=== PATIENT | female | born 1995 | race Caucasian/White ===

== ENCOUNTER 2024-06-17 16:31 | Emergency (ER) | payer OTHER, SELFPAY ==
[2024-06-17 16:32] VITALS: BP 143/93
[2024-06-17 16:36] VITALS: BMI 41.7
--- NOTE | 2024-06-17 18:19 | ED.GENMED ---
History of Present Illness
General
Chief Complaint: Rabies
Source: patient
Exam Limitations: none
Time Seen by Provider: 06/17/24 17:56
Nursing documentation reviewed up to this point in time: agreed with
History of Present Illness
History of Present Illness:
Patient states she woke over night and there was a bat in her room. Bat was not found. Advised to come to ED to begin rabies series. No bite located.
Past History
Past History
ED Past Medical History: None
Review of Systems
Review of Systems
Allergies reviewed?: Yes
All Other Systems: ROS reviewed and negative except as documented in HPI and ROS
Constitutional: Reports no symptoms
EENT: Reports no symptoms
Respiratory: Reports no symptoms
Cardiac: Reports no symptoms
ABD/GI: Reports no symptoms
Musculoskeletal: Reports no symptoms
Skin: Reports no symptoms
Neurological: Reports no symptoms
Psychiatric: Reports no symptoms
Phy Exam
General Physical Exam
General Presentation: well appearing and no apparent distress
General age: appears stated age
General Habitus: normal
General Mental: alert
Musculoskeletal Exam
Musculoskeletal Exam: full ROM
Skin Exam
Skin Exam: normal color, warm/dry and no rash
Psychiatric Exam
Psychiatric Exam: normal mood/affect
Course
Orders/Labs/Results
Orders:
Orders
06/17/24 18:19
Rabies Immune Globulin/Pf [HyperRAB] 2,580 unit IM NOW STA
Rabies Vaccine (Pcec)/Pf [Rabavert Rabies Vacc W-Diluent] 2.5 unit IM .ONCE ONE
Vital Signs
Initial and Last Documented VS:
Initial Vital Signs
Temp Pulse Resp BP Pulse Ox
98.1 F 101 18 143/93 96
06/17/24 16:32 06/17/24 16:32 06/17/24 16:32 06/17/24 16:32 06/17/24 16:32
Last Documented Vital Signs
Temp Pulse Resp BP Pulse Ox
98.1 F 101 18 143/93 96
06/17/24 16:32 06/17/24 16:32 06/17/24 16:32 06/17/24 16:32 06/17/24 16:32
*Critical Care Note
Total Time (30-74mins, 75-104mins- exclusive of procedures): Not Applicable
ED Attending Note
-
Portions of this chart may have been created with voice recognition software.� Occasional wrong word or��sound alike� substitutions may have occurred due to the inherent limitations of voice recognition software.
Discharge Plan
Departure
Patient Disposition: Home (Routine Discharge)
Date of Disposition: 06/17/24
Time of Disposition: 18:20
Patient with high blood pressure during this ER visit?: No
Condition: Good
Covid-19: Not Applicable
Discharge Problem:
Rabies exposure
Instructions: Rabies Vaccine, Rabies Vaccine CDC Vaccine Information Statement (VIS)
Prescriptions:
New
Imovax Rabies Vaccine (PF) 2.5 unit recon soln
1 ml IM DIRECTED Qty: 3 0RF
Stand Alone Forms: Rabies Vaccine Post Exp Dosing
Activity Restrictions/Additional Instructions:
Follow up with the infusion center on Wed. of your next rabies vaccine
Interventions
Interventions:
*General Assessment Last Done: 06/17/24 18:18
*Neglect/Abuse Screening Last Done: 06/17/24 18:18
*ED COVID-19 Vaccine History Last Done: 06/17/24 18:18
Discharge Date and Time
Print Language: WALLISIAN
[2024-06-17] MEDS: RABAVERT RABIES VACC W-DILUENT 2.5 UNIT IM (18:47)
[2024-06-17] MEDS: HyperRAB 1200 UNIT IM (18:51)
== END 2024-06-17 19:11 | disposition home or self-care (01) ==
LOC: EMR 16:31
PROVIDERS: EMERGENCY PHYSICIAN Emergency Medicine
DX: Z20.3 Contact with and (suspected) exposure to rabies (principal); Z29.14 Encounter for prophylactic rabies immune globulin; Z23 Encounter for immunization
CPT/HCPCS: 99284; 96372; 90471; 90375; 90675

== ENCOUNTER 2024-06-20 13:50 | Outpatient (RCR) | payer OTHER, SELFPAY ==
[2024-06-20 14:03] VITALS: BP 135/89
[2024-06-20] MEDS: HyperRAB 1380 UNIT IM (14:08)
[2024-06-20] MEDS: RABAVERT RABIES VACC W-DILUENT 2.5 UNIT IM (14:10)
--- NOTE | 2024-06-20 14:29 | PTCARENOTE ---
Pt given immunoglobin given 2.3ml in right thigh and 2.3ml in left thigh. No option to split dose in MAR. Dose given in thighs based on pt request and how many mls could fit in each muscle. Mar does not have ability to split dose based on where pt
requested the medication be given and how medication could be split into two syringes. Everything explained to patient.
== END 2024-06-30 23:59 | disposition home or self-care (01) ==
LOC: OID 13:50
PROVIDERS: ATTENDING PHYSICIAN Nurse Practitioner
DX: Z23 Encounter for immunization (principal); Z20.3 Contact with and (suspected) exposure to rabies; Z29.14 Encounter for prophylactic rabies immune globulin
CPT/HCPCS: 90375; 90471; 90675; 96372